=== PATIENT | male | born 1945 | race Caucasian/White ===

== ENCOUNTER 2017-09-30 07:37 | Observation (INO) | payer OTHER ==
--- NOTE | 2017-09-30 07:51 | CPEKG ---
Heart Rate: 101 RR Interval: 594 P-R Interval: 156 QRSD Interval: 84 QT Interval: 360 QTC Interval: 467 P Solomons: 80 QRS Solomons: 70 T Wave Solomons: 80 EKG Severity - OTHERWISE NORMAL ECG - EKG Impression: SINUS TACHYCARDIA Electronically Signed By: Linda Liu 30-Sep-2017 15:14:11
[2017-09-30] MEDS ORDERED: IPRATROPIUM/ALBUTEROL 3 ML DEYVIAL IH ONE (07:55)
--- NOTE | 2017-09-30 07:56 | EDPHY ---
H & P Time Seen by Provider: 09/30/17 07:47 HPI/ROS: CHIEF COMPLAINT: Shortness of breath HISTORY OF PRESENT ILLNESS: Patient is a 72-year-old male with a history of multiple myeloma who presents emergency department with shortness of breath. He drove here from [place] over the past couple of days. He arrived last night. He developed shortness of breath last evening it has remained persistent throughout the night. He called EMS. When they placed him on oxygen his symptoms improved. The patient has had a cough for the past week and a half. It is nonproductive. He denies any fevers or chills. No chest pain. Patient has no leg swelling. He has bilateral chronic leg pain from the chemotherapy. The patient is travel to [place] before with no difficulty with the altitude. Patient states he has had a spontaneous pneumothorax x2. These require chest tubes. Patient states that he underwent a bone marrow transplant 1 year ago. REVIEW OF SYSTEMS: My complete review of systems is negative except as mentioned in the HPI. Past Medical/Surgical History: Includes anxiety, spontaneous pneumothorax, attention deficit hyperactivity disorder, multiple myeloma Social history: The patient is from [place]. He is . He does not smoke. Smoking Status: Former smoker Physical Exam: Vitals noted GENERAL: Well-appearing, in no acute distress, alert. HEENT: Eyes normal to inspection, normal pharynx, no signs of dehydration. NECK: No thyromegaly, no lymphadenopathy, supple. RESPIRATORY: Coarse and decreased aeration throughout. No accessory muscle use. No rales or rhonchi. CVS: Regular rate and rhythm, no rubs, murmurs, or gallops. ABDOMEN: Soft, nontender, nondistended, no organomegaly. BACK: Normal to inspection, no CVA tenderness. SKIN: Normal color, no rash, warm, dry. No pallor. EXTREMITIES: No pedal edema, no calf tenderness, no Homans sign or cords, no joint swelling. NEURO/PSYCH: Alert and oriented, normal mood and affect, normal motor sensory exam. Constitutional: Initial Vital Signs Temperature (C) 37.7 C 09/30/17 07:43 Heart Rate 100 09/30/17 07:43 Respiratory Rate 15 09/30/17 07:43 Blood Pressure 199/91 H 09/30/17 07:43 O2 Sat (%) 89 L 09/30/17 07:43 O2 Delivery Mode Nasal Cannula O2 (L/minute) 2 Allergies/Adverse Reactions: azithromycin Allergy (Verified 09/30/17 07:49) Quinolones Allergy (Verified 09/30/17 07:50) Home Medications: Medication Instructions Recorded ALPRAZolam 09/30/17 Acyclovir 09/30/17 Alfuzosin HCl 09/30/17 Amphet Asp/Amphet/D-Amphet 09/30/17 Revlimid 09/30/17 Sildenafil Citrate 09/30/17 Medical Decision Making - Diagnostics EKG Interpretation: Sinus tachycardia. Normal axis. Normal intervals. No ST or T-wave abnormalities. Imaging Results: Imaging Impressions Chest X-Ray 09/30/17 08:05 Impression: 1. No acute thoracic abnormality. 2. Findings consistent with COPD/emphysema. 3. Expansile, primarily sclerotic lesion of the left mid clavicle and an adjacent lucency may present a nonhealing fracture and adjacent multiple myeloma. 4. Please see report of CTA chest performed today for further details. Chest/Thorax CTA 09/30/17 08:36 Impression: 1. No definite pulmonary thromboemboli. 2. Severe bullous emphysema. 3. Nonspecific mediastinal lymphadenopathy. 4. Left lower lobe 11 mm and right upper lobe 3 mm nonspecific noncalcified pulmonary nodules for which comparison with prior studies and follow up is recommended. 5. No acute pneumonia, pleural effusion, or pneumothorax. 6. Multiple myeloma involving the T9 vertebral body. 7. Recommend obtaining prior studies for comparison and follow up CTs for the pulmonary nodules and mediastinal adenopathy. Findings and recommendations discussed with Emergency Department physician, Linda Liu, at 0936 hours on September 30, 2017. Final report concurs with initial preliminary interpretation. A test result has been communicated to a licensed care provider and documented in the [facility] Critical Result system on 09/30/2017 9:37, Message ID [id number]. ED Course/Re-evaluation: In the emergency department I met EMS on arrival. I took report from the log feeder. I discussed possible etiologies with the patient. I answered all her questions. Laboratory studies, EKG and chest x-ray were ordered. Due to the patient's shortness of breath and decreased breath sounds he was kept on supplemental oxygen. He was given a DuoNeb. Reviewed the patient's laboratory studies. Patient's CBC was remarkable for slightly low platelets of 144. His white count and hemoglobin were normal. Chemistry panel was notable for normal creatinine. Slightly low potassium at 3.4. His BMP was in the 200s. His D-dimer was elevated at 1.1. Because the patient's elevated D-dimer CT angiogram was ordered. I discussed this with the patient and answered all his questions. On recheck the patient stated his breathing remained unchanged. However, he had better air movement on exam. No wheezing, rales or rhonchi. CT angio chest: Please refer the dictated report by Dr. Lm Ríos. Patient has a lingular infiltrate. There is also bilateral lower lobe infiltrates. The patient has moderate hiatal hernia. I discussed the results with hospitalist service. Dr. Salter will admit. Blood cultures, lactate and normal saline 500 mL IV were ordered. The patient has an allergy to azithromycin and quinolones. Because of this I ordered Rocephin 1 g IV and Augmentin 875 mg orally. 935: I again discussed the case with Dr. Ríos. It is noted that I made an error with the CT noted above. This report was on a different pt. Mr. Davenport CT did not show an infiltrate or hiatal hernia. Please disregard the reported above. Mr. Davenport CT showed severe emphysema with scarring. No definite pulmonary embolus. No infiltrate. Because of this the Rocephin and Augmentin were canceled. Patient was given Solu-Medrol 125 mg IV. I contacted the hospitalist service and informed them of the findings and change in my report. I discussed the findings with the patient. I answered all his questions. 1004: The nurse rechecked his vital signs. Patient's temperature was 38.2degrees. Patient states that he gets intermittent temperatures due to his chemotherapy. However, based on the patient's hypoxia and respiratory complaints I reordered blood cultures and lactic acid. Differential Diagnosis: My differential includes but is not limited to bronchitis, pneumonia, pneumothorax, malignancy, metastatic disease, reactive airway disease, hypoxia, HAPW, ACS - Data Points Laboratory Results: Laboratory Results 09/30/17 07:35 09/30/17 07:35 09/30/17 09/30/17 09/30/17 07:35 07:35 07:35 WBC 3.89 10^3/uL 10^3/uL (3.80-9.50) RBC 4.54 10^6/uL 10^6/uL (4.40-6.38) Hgb 15.2 g/dL g/dL (13.7-17.5) Hct 42.9 % % (40.0-51.0) MCV 94.5 fL fL (81.5-99.8) MCH 33.5 pg pg (27.9-34.1) MCHC 35.4 g/dL g/dL (32.4-36.7) RDW 14.6 % % (11.5-15.2) Plt Count 144 10^3/uL L 10^3/uL (150-400) MPV 10.0 fL fL (8.7-11.7) Neut % (Auto) 74.8 % H % (39.3-74.2) Lymph % (Auto) 12.3 % L % (15.0-45.0) [place] % (Auto) 9.8 % % (4.5-13.0) Eos % (Auto) 1.5 % % (0.6-7.6) Baso % (Auto) 1.3 % % (0.3-1.7) Nucleat RBC Rel Count 0.0 % % (0.0-0.2) Absolute Neuts (auto) 2.91 10^3/uL 10^3/uL (1.70-6.50) Absolute Lymphs (auto) 0.48 10^3/uL L 10^3/uL (1.00-3.00) Absolute Monos (auto) 0.38 10^3/uL 10^3/uL (0.30-0.80) Absolute Eos (auto) 0.06 10^3/uL 10^3/uL (0.03-0.40) Absolute Basos (auto) 0.05 10^3/uL 10^3/uL (0.02-0.10) Absolute Nucleated RBC 0.00 10^3/uL 10^3/uL (0-0.01) Immature Gran % 0.3 % % (0.0-1.1) Immature Gran # 0.01 10^3/uL 10^3/uL (0.00-0.10) D-Dimer 1.10 ug/mLFEU H ug/mLFEU (0.00-0.50) Sodium 142 mEq/L mEq/L (134-144) Potassium 3.4 mEq/L L mEq/L (3.5-5.2) Chloride 105 mEq/L mEq/L (97-110) Carbon Dioxide 27 mEq/l mEq/l (22-31) Anion Gap 10 mEq/L mEq/L (8-16) BUN 13 mg/dL mg/dL (7-23) Creatinine 0.8 mg/dL mg/dL (0.7-1.3) Estimated GFR > 60 Glucose 107 mg/dL H mg/dL (70-100) Calcium 8.8 mg/dL mg/dL (8.5-10.4) Troponin I 0.020 ng/mL ng/mL (0.000-0.034) NT-Pro-B Natriuret Pep 205 pg/mL H pg/mL (0-125) Medications Given: Discontinued Medications Albuterol/Ipratropium (Duoneb) 3 ml IH EDNOW ONE Stop: 09/30/17 07:56 Last Admin: 09/30/17 07:56 Dose: 3 ml Sodium Chloride (Ns) 500 mls @ 0 mls/hr IV ONCE ONE PRN Reason: Wide Open Stop: 09/30/17 09:28 Last Admin: 09/30/17 09:55 Dose: 500 mls Methylprednisolone Sodium Succinate (Solu-Medrol) 125 mg IVP EDNOW ONE Stop: 09/30/17 09:38 Last Admin: 09/30/17 09:55 Dose: 125 mg Departure - Departure Disposition: [facility] Inpatient Acute Clinical Impression: Shortness of breath, COPD exacerbation Condition: Good Referrals: Patient,NotPresent [Unknown] - As per Instructions
[2017-09-30 08:14] LABS: % IMMATURE GRANULYOCYTES 0.3 % (0.0-1.1); ABSOLUTE IMMATURE GRANULOCYTES 0.01 10^3/uL (0.00-0.10); ADD DIFF? NO; ADD MORPH? NO; ADD SCAN? NO; ATYPICAL LYMPHOCYTE FLAG 50 (0-99); FRAGMENT RBC FLAG 0 (0-99); HEMATOCRIT 42.9 % (40.0-51.0); HEMOGLOBIN 15.2 g/dL (13.7-17.5); LEFT SHIFT FLG 0 (0-99); LIPEMIA HEMOLYSIS FLAG 90 (0-99); MEAN CELL HEMOGLOBIN 33.5 pg (27.9-34.1); MEAN CELL HEMOGLOBIN CONCENTR. 35.4 g/dL (32.4-36.7); MEAN CELL VOLUME 94.5 fL (81.5-99.8); PLATELET CLUMPS FLAG 30 (0-99); PLATELET COUNT 144 10^3/uL (150-400); RED BLOOD CELL COUNT 4.54 10^6/uL (4.40-6.38); RED CELL DISTRIBUTION WIDTH 14.6 % (11.5-15.2)
[2017-09-30 08:20] LABS: CALCIUM 8.8 mg/dL (8.5-10.4); CARBON DIOXIDE 27 mEq/l (22-31); CHLORIDE 105 mEq/L (97-110); CREATININE 0.8 mg/dL (0.7-1.3); GLOMERULAR FILTRATION RATE > 60; GLUCOSE 107 mg/dL (70-100); SODIUM 142 mEq/L (134-144)
[2017-09-30 08:27] LABS: ANION GAP 10 mEq/L (8-16); POTASSIUM 3.4 mEq/L (3.5-5.2)
[2017-09-30] MEDS ORDERED: IOPAMIDOL (ISOVUE 370) 100 ML BTL IV ONE (08:50)
[2017-09-30] MEDS ORDERED: NS 500 ML IV ONE (09:27)
[2017-09-30] MEDS ORDERED: AMOXICILLIN/CLAVULANATE POT 875/125 MG TAB PO ONE (09:27)
[2017-09-30] MEDS ORDERED: methylPREDNISolone SOD SUCC 125 MG/2 ML VIAL IVP ONE (09:37)
[2017-09-30] MEDS ORDERED: ACETAMINOPHEN 325 MG TAB PO PRN (10:14)
[2017-09-30] MEDS ORDERED: ONDANSETRON 4 MG/2 ML VIAL IVP PRN (10:14)
[2017-09-30] MEDS ORDERED: ONDANSETRON DISINTEGRATING 4 MG TAB PO PRN (10:14)
[2017-09-30] MEDS ORDERED: ADDERALL 10 MG TAB PO PRN (11:22)
[2017-09-30] MEDS ORDERED: POTASSIUM CL 20 MEQ/15 ML UDCUP PO ONE (11:22)
[2017-09-30] MEDS ORDERED: IBUPROFEN 200 MG TAB PO PRN (11:22)
[2017-09-30] MEDS ORDERED: SILDENAFIL CITRATE 20 MG TAB PO PRN (11:22)
[2017-09-30] MEDS ORDERED: LIDOCAINE 1% 2 ML INJ ONE (13:02)
--- NOTE | 2017-09-30 13:05 | GHP ---
[f rep st] HISTORY AND PHYSICAL DATE OF ADMISSION: 09/30/2017 CHIEF COMPLAINT: Shortness of breath, fever. HISTORY OF PRESENT ILLNESS: A pleasant 72-year-old male with history of multiple myeloma on chemo, COPD, who is here visiting from [place], presents with shortness of breath. The shortness of breath came on suddenly this morning. He has had a dry cough over the last couple days. They drove from [place] to [place] now to [place]. His cough is nonproductive. He has had chills. No fevers or sweats. However, he did fever to 38.7 in the emergency room. No chest pain. No lower extremity edema. He was concerned that he had a pneumothorax as he has had 2 spontaneous in the past requiring chest tubes. REVIEW OF SYSTEMS: I completed a 10-point review of systems, negative except as noted in HPI. PAST MEDICAL HISTORY: Includes: 1. Multiple myeloma status post stem cell transplant on chemotherapy. 2. COPD. 3. Anxiety. 4. Spontaneous pneumothorax x2. 5. Attention deficit hyperactivity disorder. PAST SURGICAL HISTORY: 1. Stem cell transplant. 2. Cervical fusion C2 through C4. SOCIAL HISTORY: Lives in [place] with his . He is a retired emergency room nurse. Smoked a pack a day of cigarettes for greater than 50 years. Occasional marijuana and alcohol. FAMILY HISTORY: Mother with breast cancer. Father with 5 MIs, colon cancer. Brother with ID and Hodgkin lymphoma. ALLERGIES: Azithromycin, quinolones. HOME MEDICATIONS: Testosterone, ibuprofen as needed, herbal supplements, Adderall, Alfuzosin 10 mg at bedtime, acyclovir 400 mg twice daily, Xanax 1 mg at bedtime, Revatio 20 mg daily p.r.n., Revlimid 5 mg at bedtime. PHYSICAL EXAMINATION: VITAL SIGNS: Temperature 38.7, blood pressure 145/66, heart rate is 90-103, respiratory rate 20, 95% on 1.5 L, 89% on room air. GENERAL: Well-appearing male sitting up in bed, no acute distress. HEENT: PERRLA. Mildly dry mucous membranes. CV: Regular rate and rhythm. No murmurs , gallops, rubs. LUNGS: Diminished throughout but no crackles or wheezing. ABDOMEN: Soft, nontender, nondistended. Positive bowel sounds. : No Barton. MUSCULOSKELETAL: 5/5 upper and lower extremity strength. NEUROLOGIC: Cranial nerves II through XII intact. PSYCH: Alert and oriented x3. LABORATORY DATA: WBC 3, hemoglobin 15, hematocrit 42, platelets 144. Lactate 0.9. D-dimer is 1.1. Sodium 142, potassium 3.4, chloride 105, carbon dioxide 27, creatinine 0.8, glucose 107. Troponin 0.02. BNP is 205. Chest x-ray is personally reviewed by me; hyperexpanded bullae noted. No effusion or opacity. EKG personally reviewed by me; sinus tachycardia. CTA; no definitive pulmonary embolism. Severe bullous emphysema. Mediastinal lymphadenopathy. Left lower lobe 11 mm and right upper lobe 3 mm, nonspecific pulmonary nodules. No acute pneumonia, effusion, or pneumothorax. Multiple thoracic and left clavicular lytic lesions. ASSESSMENT AND PLAN: 1. Fever: Immunocompromised with underlying chemotherapy. Chest x-ray and CTA negative for pneumonia. Check resp PCR. Denies other infectious symptoms but will check a UA to be complete. No antibiotics at this time. Blood cultures are pending. Sputum cultures pending as well. 2. Chronic obstructive pulmonary disease exacerbation: He was wheezing per admitting physician. Will continue nebs. He has an allergy to azithromycin, so will start Doxy for atypical PNA. 3. Multiple myeloma status post stem cell transplant: Continue oral chemotherapy here. 4. Anxiety. Continue Xanax. 5. Attention deficit hyperactivity disorder. Continue Adderall. 6. History of spontaneous pneumothorax: No evidence on imaging here. 7. Acute hypoxic respiratory failure: Secondary to suspected viral infection. No PE, pneumothorax or infection on imaging. 8. Diet: Regular. 9. DVT prophylaxis: Lovenox. DISPOSITION: Patient warrants observation admission given acute hypoxic respiratory failure warranting further studies. /[id number]/MODL MTDD
[2017-09-30] MEDS: DOXYCYCLINE HYCLATE 100 MG CAP/TAB PO SCH ×2 (13:24→20:51)
[2017-09-30] MEDS ORDERED: IPRATROPIUM/ALBUTEROL 3 ML DEYVIAL IH PRN (13:26)
[2017-09-30 19:58] LABS: COLOR YELLOW; LEUKOCYTE ESTERASE,URINE NEGATIVE (NEGATIVE); NITRITE,URINE NEGATIVE (NEGATIVE)
[2017-09-30 20:02] LABS: MUCUS TRACE /lpf (NONE-1+)
[2017-09-30] MEDS: ACYCLOVIR 400 MG TAB PO SCH (20:50)
[2017-09-30] MEDS ORDERED: ALPRAZolam 1 MG TAB PO SCH (21:00)
[2017-09-30] MEDS ORDERED: Lenalidomide [Revlimid] 5 MG PO SCH (21:00)
[2017-09-30] MEDS ORDERED: Alfuzosin Hcl [Alfuzosin Hcl Er] 10 MG PO SCH (21:00)
[2017-10-01 04:51] LABS: ANION GAP 10 mEq/L (8-16); CALCIUM 8.4 mg/dL (8.5-10.4); CARBON DIOXIDE 27 mEq/l (22-31); CHLORIDE 106 mEq/L (97-110); CREATININE 0.7 mg/dL (0.7-1.3); GLOMERULAR FILTRATION RATE > 60; GLUCOSE 101 mg/dL (70-100); POTASSIUM 3.8 mEq/L (3.5-5.2); SODIUM 143 mEq/L (134-144)
[2017-10-01] MEDS ORDERED: OSELTAMIVIR PHOSPHATE 75 MG CAP PO SCH (08:30)
[2017-10-01] MEDS ORDERED: Herbals/Supplements -Info Only PO SCH (09:00)
[2017-10-01] MEDS ORDERED: ENOXAPARIN 40 MG/0.4 ML SYR SC SCH (09:00)
[2017-10-01] MEDS ORDERED: TESTOSTERONE TD SCH (09:00)
[2017-10-01] MEDS ORDERED: ADDERALL 20 MG TAB PO SCH (09:00)
[2017-10-01] MEDS ORDERED: predniSONE 20 MG TAB PO SCH (09:00)
[2017-10-01] MEDS: ACYCLOVIR 400 MG TAB PO SCH (09:25)
[2017-10-01] MEDS: DOXYCYCLINE HYCLATE 100 MG CAP/TAB PO SCH (09:25)
--- NOTE | 2017-10-01 12:09 | PDHOMEO2F ---
Home Oxygen Face to Face Home Orders: I certify that a physician or a nurse practitioner or physician's dental ceramist assistant has had a [id number] encounter with this patient on the date of this order due to the diagnosis listed, which relates to the primary reason the patient requires home oxygen. Alternative treatments have been tried, or considered, and deemed ineffective. It is anticipated that supplemental oxygen will result in improvement with treatment. Home oxygen qualifying diagnosis: Influenza A Home oxygen secondary diagnosis: Hypoxia SpO2 on room air (%): 84 Frequency of home oxygen needed: continuous Home oxygen liters per minute: 2 Home oxygen delivery device: nasal cannula Concentrator: Yes E-tanks for mobility and back up: Yes If ordering portable O2, is the patient mobile in the home?: Yes I certify that, based on these findings, the home oxygen is medically necessary for this patient for the following length of time. Length of time home oxygen needed: 1 month
[2017-10-01 12:17] VITALS: BP 150/77
[2017-10-01 12:37] VITALS: TEMP 98.3
--- NOTE | 2017-10-01 12:53 | HOSPPROG ---
Hospitalist Progress Note Assessment/Plan: #Acute hypoxic resp failure: due to viral infection. DC on oxygen #Influenza A, rhino/enterovirus: Tamiflu #h/o MM: FU with oncologist #ADHD #Disp: DC today Subjective: feeling much better. dry cough today Objective: Vital Signs Temp Pulse Resp BP Pulse Ox 36.8 C 89 19 150/77 H 92 10/01/17 12:37 10/01/17 11:53 10/01/17 11:53 10/01/17 11:53 10/01/17 11:53 Microbiology 09/30/17 16:10 - Final Sputum, Expectorated 09/30/17 17:00 Respiratory Panel (PCR) - Final Nasal, Sinus - Anaerobic Tube/Swab Influenza Virus Type A H3 Human Rhinovirus/Enterovirus Laboratory Results 10/01/17 04:15 09/30/17 10/01/17 10/02/17 05:59 05:59 05:59 Intake Total 1225 Output Total 375 Balance 850 - Physical Exam Constitutional: no apparent distress Eyes: PERRL Ears, Nose, Mouth, Throat: moist mucous membranes Cardiovascular: regular rate and rhythym, no murmur, rub, or gallop Respiratory: reduced air movement, No expiratory wheeze, No rhonchi Genitourinary: no bladder fullness Skin: warm Musculoskeletal: full muscle strength Neurologic: AAOx3, CN II-XII Intact Psychiatric: interacting appropriately ICD10 Worksheet Patient Problems: Problems Problem Status Onset COPD exacerbation Acute Shortness of breath Acute
[2017-10-01 13:02] VITALS: PULSE 78; RESP 12; O2SAT 84
--- NOTE | 2017-10-01 13:36 | GDS ---
[f rep st] DISCHARGE SUMMARY DISCHARGE DIAGNOSES: 1. Influenza A. 2. Enterovirus/rhinovirus infection. 3. Multiple myeloma status post stem cell transplant on chemotherapy. 4. Chronic obstructive pulmonary disease. 5. Anxiety. 6. Acute hypoxic respiratory failure. 7. History of pneumothorax. 8. Attention deficit hyperactivity disorder. 9. Fever. HISTORY OF PRESENT ILLNESS: A pleasant 72-year-old male with history of multiple myeloma on chemotherapy, COPD, who is visiting here with his from [place], presenting with shortness of breath and nonproductive cough for several days. He has reported some chills but no fevers or sweats. He had a fever to 38.7 in the emergency room here. Please add fever to discharge diagnosis. HOSPITAL COURSE BY PROBLEM: 1. Acute hypoxic respiratory failure: Secondary to a viral infection. Given the significant underlying emphysema seen on imaging, warrants oxygen at discharge. 2. Influenza A, enterovirus/rhinovirus: Treated with Tamiflu for 5 days. Supportive care. Cough suppression. 3. COPD exacerbation given acute viral infection: Provide a burst of prednisone for 5 days. 4. Anxiety: Resume home medications. 5. Attention deficit hyperactivity disorder: Continue medications. DISPOSITION: Patient is stable for discharge home with oxygen. They will be staying at the [facility]. MEDICATIONS: See medication reconciliation. FOLLOWUP: Primary care physician. Time coordinating DC and medications, >35minutes /[id number]/MODL MTDD
--- NOTE | 2017-10-02 11:50 | ASDISCHSUM ---
Discharge Information Plan Status: Medically Cleared to Leave: Discharge Date:10/01/2017 04:58 PM CM D/C Disposition: ADT D/C Disposition:Home, Routine, Self-Care Projected Discharge Date:10/01/2017 04:58 PM Transportation at D/C: Discharge Delay Reason: Follow-Up Date:10/01/2017 04:58 PM Discharge Slot: Final Diagnosis: Placement Information Patient Contact Information Contact Name:URBANO Relationship: Address:[address] City:[place] Alternate Phone: [facility]/Zip Code:[place] [address] Email: Financial Information Financial Class: Primary Plan Desc:MEDICARE OUTPATIENT Primary Plan Number:[id number] Secondary Plan Desc:[employer] PPO POS HMO SIG ADM Secondary Plan Number:[id number] Assessment Information LACE LACE Acuity / Level of Care Answers: Was the patient admitted to hospital via the emergency department? Yes: Comorbidities - select Answers: Any tumor (including all that apply lymphoma or leukemia) Emergency dept visits in Answers: 1 last 6 months Score: 6 Date Signed: 09/30/2017 09:40 AM Electronically Signed By:Shaista Zeng RN [facility] CM Progress Note CM Note CM Note Notes: Pt discharged with no DC needs. Date Signed: 10/02/2017 11:49 AM Electronically Signed By:Es Vasques LCSW Intervention Information Intervention Type:*HERRON-Signed Date of Service:10/01/2017 09:11 AM Patient Type:Observation Staff Member:Krissy Blake Hours: Discipline: Severity: Comment:
== END 2017-10-01 16:58 | disposition home or self-care (01) ==
LOC: F1N 11:38
PROVIDERS: ADMIT Internal Medicine; ATTEND Internal Medicine
DX: J10.1 Influenza due to other identified influenza virus with other respiratory manifestations (principal); J96.01 Acute respiratory failure with hypoxia; J44.9 Chronic obstructive pulmonary disease, unspecified; Z98.1 Arthrodesis status; C90.00 Multiple myeloma not having achieved remission
CPT/HCPCS: 71020; 71275; 93005; 96374; 99285; G0378; J1650; J2930; Q9967